=== PATIENT | female | born 1950 | race Caucasian/White ===

== ENCOUNTER 2017-02-02 08:38 | Outpatient (CLI) | payer MEDICARE ==
[2017-02-02 09:22] LABS: Hemoglobin 12.7 g/dL (12.0-16.0); Mean Corpuscular HGB CONC 35.4 g/dL (32.0-36.0); Mean Corpuscular Hemoglobin 34.7 pg (27.0-31.0); Mean Corpuscular Volume 98.3 fl (81.0-99.0); Mean Platelet Volume 6.3 fL (7.4-10.4); Platelet Count 227 thou/uL (130-400); Red Blood Cell (RBC) Count 3.65 mill/uL (4.20-5.40); White Blood Cell (WBC) Count 5.2 thou/uL (4.8-10.8)
[2017-02-02 09:49] LABS: Anion Gap 16 mmol/L (10-20); BUN (Urea Nitrogen) 12 mg/dL (9.8-20.1); Calc. Creatinine Clearance 0 mL/min (70-130); Calcium 9.1 mg/dL (7.8-10.44); Carbon Dioxide 24 mmol/L (23-31); Chloride 103 mmol/L (98-107); Estimated GFR-MDRD 78; Glucose 190 mg/dL (80-115); Potassium 4.5 mmol/L (3.5-5.1); Sodium 138 mmol/L (136-145)
== END 2017-02-02 08:39 | disposition home or self-care (01) ==
LOC: BURLAB 08:38
PROVIDERS: ATTEND Internal Medicine Hematology & Oncology
DX: C79.82 Secondary malignant neoplasm of genital organs (principal); C50.919 Malignant neoplasm of unspecified site of unspecified female breast
CPT/HCPCS: 36415; 80048; 85027

== ENCOUNTER 2017-05-13 08:31 | Outpatient (CLI) | payer MEDICARE ==
[2017-05-13 11:03] LABS: Hemoglobin 12.5 g/dL (12.0-16.0); Mean Corpuscular HGB CONC 34.4 g/dL (32.0-36.0); Mean Corpuscular Hemoglobin 32.5 pg (27.0-31.0); Mean Corpuscular Volume 94.3 fl (81.0-99.0); Mean Platelet Volume 6.2 fL (7.4-10.4); Platelet Count 243 thou/uL (130-400); RBC Distribution Width 11.6 % (11.5-14.5); Red Blood Cell (RBC) Count 3.85 mill/uL (4.20-5.40); White Blood Cell (WBC) Count 6.3 thou/uL (4.8-10.8)
[2017-05-13 11:16] LABS: Anion Gap 14 mmol/L (10-20); BUN (Urea Nitrogen) 11 mg/dL (9.8-20.1); Calc. Creatinine Clearance 0 mL/min (70-130); Calcium 9.5 mg/dL (7.8-10.44); Carbon Dioxide 24 mmol/L (23-31); Chloride 102 mmol/L (98-107); Estimated GFR-MDRD 71; Glucose 284 mg/dL (80-115); Potassium 4.4 mmol/L (3.5-5.1); Sodium 136 mmol/L (136-145)
== END 2017-05-13 08:32 | disposition home or self-care (01) ==
LOC: BURLAB 08:31
PROVIDERS: ATTEND Internal Medicine Hematology & Oncology
DX: C50.919 Malignant neoplasm of unspecified site of unspecified female breast (principal)
CPT/HCPCS: 36415; 80048; 85027

== ENCOUNTER 2024-04-23 16:48 | Emergency (ER) | payer MEDICARE ==
[~2024-04-23 16:48] MED LIST: Ibuprofen 100 MG/5 ML UDCUP ONE
[2024-04-23] MEDS ORDERED: Ibuprofen 200 MG TAB ONE (17:10)
== END 2024-04-23 17:23 | disposition home or self-care (01) ==
LOC: BURERS 16:48
DX: S73.101A Unspecified sprain of right hip, initial encounter (principal); E11.9 Type 2 diabetes mellitus without complications; E78.5 Hyperlipidemia, unspecified; X50.1XXA Overexertion from prolonged static or awkward postures, initial encounter; Z79.899 Other long term (current) drug therapy
CPT/HCPCS: 99283

== ENCOUNTER 2024-04-27 09:36 | Emergency (ER) | payer MEDICARE ==
[2024-04-27] MEDS ORDERED: Morphine 4 MG/ML VIAL ONE (09:53)
[2024-04-27] MEDS ORDERED: Ondansetron ODT 4 MG TAB ONE (09:53)
== END 2024-04-27 10:49 | disposition home or self-care (01) ==
LOC: BURERS 09:36
DX: S76.011A Strain of muscle, fascia and tendon of right hip, initial encounter (principal); E11.9 Type 2 diabetes mellitus without complications; E78.5 Hyperlipidemia, unspecified; M46.1 Sacroiliitis, not elsewhere classified; W19.XXXA Unspecified fall, initial encounter
CPT/HCPCS: 72170; 96372; J2270; Q0162

== ENCOUNTER 2025-08-28 11:21 | Emergency (ER) | payer MEDICARE ==
[2025-08-28] MEDS ORDERED: Acetaminophen/Codeine 30-300mg Tablet ONE (12:18)
[2025-08-28] MEDS ORDERED: Lidocaine 1% (PF) 30 ML VIAL ONE (12:33)
== END 2025-08-28 13:59 | disposition home or self-care (01) ==
LOC: BURERS 11:21
DX: S52.501A Unspecified fracture of the lower end of right radius, initial encounter for closed fracture (principal); S62.001A Unspecified fracture of navicular [scaphoid] bone of right wrist, initial encounter for closed fracture; W19.XXXA Unspecified fall, initial encounter
CPT/HCPCS: 73090; 73110; J2003; 25605; 99283